=== PATIENT | female | born 1970 | race African-American/Black ===

== ENCOUNTER 2022-03-18 09:40 | Emergency (ER) | payer OTHER ==
[2022-03-18] MEDS ORDERED: KETOROLAC TROMETHAMINE 30 MG/1 ML VIAL IM ONE (10:05)
[2022-03-18] MEDS ORDERED: diazePAM 5 MG TABLET PO ONE (10:06)
[2022-03-18] MEDS ORDERED: LIDOCAINE 5% TOPICAL PATCH TP ONE (10:06)
[2022-03-18] MEDS ORDERED: KETOROLAC TROMETHAMINE 30 MG/1 ML VIAL ONE (10:07)
[2022-03-18] MEDS ORDERED: LIDOCAINE 5% TOPICAL PATCH ONE (10:07)
[2022-03-18] MEDS ORDERED: diazePAM 5 MG TABLET ONE (10:08)
[2022-03-18 10:16] VITALS: BP 139/86; PULSE 79; TEMP 98.5; BMI 35.6
[2022-03-18] MEDS ORDERED: LIDOCAINE PATCH REMOVAL MC SCH (22:00)
== END 2022-03-18 11:05 | disposition home or self-care (01) ==
LOC: FER 09:40
PROC: 3E0233Z Introduction of Anti-inflammatory into Muscle, Percutaneous Approach (ICD-10-PCS; principal; 2022-03-18)
DX: S39.012A Strain of muscle, fascia and tendon of lower back, initial encounter (principal); X50.0XXA Overexertion from strenuous movement or load, initial encounter
CPT/HCPCS: 96372; 99284-25